=== PATIENT | female | born 1995 | race Hispanic/Latino ===

== ENCOUNTER 2019-12-29 06:49 | Outpatient (CLI) | payer OTHER ==
--- NOTE | 2019-12-29 08:13 | ULT ---
ULTRASOUND OBSTETRICAL COMPLETE: DATE: 12/29/2019 HISTORY: 24-year-old female ICD-10: "Z 34.82 encounter for supervision of other normal , second trime ster" "Complete anatomy, size and dates, cervical length" FINDINGS: number: neri lie: Transverse. Head to maternal right. Maternal cervix: 4.5 cm. Closed. Placenta: Anterior. No previa. Amniotic fluid volume: MARLON = 15 cm heart rate: 136 bpm The following anatomy is visualized, with no evidence of anomalies: Head, cerebellum, lateral ventricles, four-chamber heart, stomach, kidneys, cord insertion, bladder, cervical spine, thoracic spine, lumbar spine, sacrum, nose and lips, upper extremities, lower extremities, and three-vessel cord. biometry: Biparietal diameter (BPD): 6.3 cm 25 w 3 d Head circumference (HC): 23.9 cm 26 w 1 d Abdominal circumference (AC): 21.7 cm 26 w 1 d Femur length (FL): 4.7 cm 25 w 5 d Average ultrasound age (AUA): 25 w 6 d Estimated date of delivery (CARLEEN): 04/06/2020 Estimated weight (EFW): 870 g +/- 127 g IMPRESSION: 1) Live 2nd trimester intrauterine gestation. 2) Estimated gestational age of 25 weeks, 6 days 3) transverse lie. 4) no anatomic abnormality identified.
== END 2019-12-29 06:50 | disposition home or self-care (01) ==
LOC: BICULT 06:49
PROVIDERS: ATTEND Family Medicine
DX: Z34.82 Encounter for supervision of other normal pregnancy, second trimester (principal); Z3A.25 25 weeks gestation of pregnancy
CPT/HCPCS: 76805

== ENCOUNTER 2020-06-11 21:33 | Observation (INO) | payer MEDICAID, SELFPAY ==
[2020-06-11] MEDS ORDERED: Lorazepam 1 MG TAB ONE (22:25)
[2020-06-11 22:27] LABS: Bilirubin Negative (Negative); Blood, Urine Negative (Negative); Clarity Clear (Clear); Glucose, Urine (Dipstick) Normal (Negative); Ketone, Urine Negative (Negative); Leukocyte Negative Leu/uL (Negative); Nitrite Negative (Negative); Protein, Urine (Dipstick) Negative (Neg-Trace); Specific Gravity, Urine 1.002 (1.002-1.036); Urobilinogen Normal mg/dL (Less than 2); pH, Urine 6.5 (5.0-9.0)
[2020-06-11 22:47] LABS: #Basophils 0.1 thou/uL (0.0-0.2); #Eosinphils 0.1 thou/uL (0.0-0.7); #Monocytes 0.5 thou/uL (0.11-0.59); #Neutrophils 3.3 thou/uL (1.40-6.50); %Basophils 0.8 % (0.0-1.0); %Lymphocytes 42.8 % (21.0-51.0); %Neutrophils 47.3 % (42.0-75.0); Hemoglobin 14.5 g/dL (12.0-16.0); Mean Corpuscular Hemoglobin 28.3 pg (27.0-31.0); Mean Corpuscular Volume 80.7 fL (78.0-98.0); Mean Platelet Volume 11.2 fL (7.4-10.4); Platelet Count 209 thou/uL (130-400); RBC Distribution Width 17.3 % (11.5-14.5); Red Blood Cell (RBC) Count 5.14 mill/uL (4.20-5.40)
[2020-06-11 23:09] LABS: ALT (SGPT) 13 U/L (8-55); AST (SGOT) 16 U/L (5-34); Albumin 4.4 g/dL (3.5-5.0); Alkaline Phosphatase 93 U/L (40-110); Anion Gap 14 mmol/L (10-20); BUN (Urea Nitrogen) 6 mg/dL (7.0-18.7); Bilirubin, Total 0.3 mg/dL (0.2-1.2); CK (CPK) 94 U/L (29-168); Calc. Creatinine Clearance 0 mL/min (70-130); Calcium 8.9 mg/dL (7.8-10.44); Carbon Dioxide 21 mmol/L (22-29); Chloride 99 mmol/L (98-107); Estimated GFR-MDRD Greater than 90; Globulin 2.8 g/dL (2.4-3.5); Glucose 157 mg/dL (70-105); Magnesium 1.7 mg/dL (1.6-2.6); Protein, Total 7.2 g/dL (6.0-8.3); Sodium 131 mmol/L (136-145)
[2020-06-11 23:12] LABS: Potassium 2.5 mmol/L (3.5-5.1)
[2020-06-11] MEDS ORDERED: Potassium Chloride 20 MEQ TAB ONE (23:25)
[2020-06-11] MEDS ORDERED: Magnesium 2 GM/50 ML BAG (IN WATER) ONE (23:43)
[2020-06-11] MEDS ORDERED: Potassium Chloride 40 MEQ in Sodium Chloride 0.9% 250 ML 250 ML IVPB SCH (23:45)
[2020-06-12] MEDS ORDERED: Sodium Chloride 0.9% 1,000 ML IV SCH (02:45)
--- NOTE | 2020-06-12 03:08 | HP ---
REASON FOR ADMISSION: Anxiety and palpitation. HISTORY OF PRESENT ILLNESS: This is a 25-year-old female patient, who is presenting with tachycardia and anxiety. She recently delivered and has been on an extreme diet using weight loss supplements and not eating much over the past couple months. She did lose approximately 30 pounds. Did have a panic attack yesterday, came to the ER. Her blood work did reveal low potassium and low magnesium level. Currently, she is still in the ER and appears to be doing better, appears to be comfortable. When I went to see her, she was asleep. She is Georgian-speaking only, but her is at the bedside providing me with most of the information. PAST MEDICAL HISTORY: The patient does not have any past medical history. SOCIAL HISTORY: She does not smoke. Does not drink alcohol. FAMILY HISTORY: Negative for premature coronary artery disease. REVIEW OF SYSTEMS: All systems reviewed, except the above-mentioned weight loss, found to be negative. PHYSICAL EXAMINATION: GENERAL: She is awake, alert, oriented, does not appear in distress. VITAL SIGNS: Her blood pressure is 117/72, pulse of 104, temperature is 98.3, and saturating 98% on room air. HEENT: Head is nontraumatic and normocephalic. Pupils equal and reactive. Extraocular movements are intact. Nonicteric sclerae. Well injected conjunctivae. Oral mucosa normal. Nasal mucosa normal. NECK: Supple. No adenopathy. No murmur. Thyroid not palpable. Trachea is midline. No supraclavicular adenopathy. CARDIAC: S1, S2 regular. No murmur. No gallops. No friction rubs. No displacement of PMI. LUNGS: Clear to auscultation bilaterally. No wheezes. No rhonchi. No crackles. ABDOMEN: Bowel sounds are positive. Nontender abdomen. No visceromegaly. EXTREMITIES: No lower extremity edema. No cyanosis. NEUROLOGIC: Cranial nerves 2 through 12 within normal limits. Normal motor function. Normal sensory reflexes. LABORATORY DATA: Blood work shows WBC of 7, hemoglobin of 14.5, platelets of 209. Sodium 131, potassium 2.5, bicarb of 21, BUN 6, creatinine 0.71. Troponin 0.021. EKG shows sinus tachycardia, possible left atrial enlargement. Incomplete right bundle-branch block and nonspecific T-wave abnormality per my read. ASSESSMENT AND PLAN: This is a 25-year-old female patient, who is presenting with an anxiety attack, found to have hypokalemia and hypomagnesemia, also tachycardia, most likely due to poor diet and rapid weight loss over the past couple months after her . Currently, she is doing much better, receiving IV potassium and she did already receive IV magnesium. The patient will be admitted to telemetry and we will recheck her electrolytes in the morning and based on the results, we will proceed with further replacement if needed. For DVT prophylaxis, will be on SCDs. Job ID: [id number]
[2020-06-12 06:34] LABS: Anion Gap 11 mmol/L (10-20); BUN (Urea Nitrogen) 7 mg/dL (7.0-18.7); Calc. Creatinine Clearance 0 mL/min (70-130); Calcium 8.3 mg/dL (7.8-10.44); Carbon Dioxide 20 mmol/L (22-29); Chloride 115 mmol/L (98-107); Estimated GFR-MDRD Greater than 90; Glucose 112 mg/dL (70-105); Magnesium 2.5 mg/dL (1.6-2.6); Potassium 4.5 mmol/L (3.5-5.1); Sodium 141 mmol/L (136-145)
[2020-06-12 09:34] VITALS: BMI 23.8
[2020-06-12 13:00] LABS: SARS-CoV-2 MS2 Positive; SARS-CoV-2 N Gene Negative; SARS-CoV-2 S Gene Negative; SARS-CoV-2 by NAA Not Detected (NotDetected); SARS-CoV-2 orf1ab Negative
--- NOTE | 2020-06-12 13:15 | PDOC.HOSPP ---
- Subjective Encounter Date: 06/12/20 - Objective Vital Signs & Weight: Vital Signs (12 hours) Temp Pulse Resp Pulse Ox 06/12/20 11:40 98.0 F 82 16 98 06/12/20 08:10 99.3 F 81 16 98 Weight Weight 130 lb 0.105 oz Result Diagrams: 06/11/20 22:36 06/12/20 05:54 Hospitalist ROS - Medication Medications: Active Medications Generic Name Dose Route Start Last Admin Trade Name Freq PRN Reason Stop Dose Admin Sodium Chloride 1,000 mls @ 75 mls/hr 06/12/20 02:45 06/12/20 03:29 Normal Saline 0.9% IV 1,000 mls .[id number] GEOFF Administration Hosp A/P - Plan pt will be d/cd
[2020-06-12 13:58] VITALS: BP 120/68; TEMP 97.6
--- NOTE | 2020-06-12 14:26 | PDOC.DS.DS ---
Provider - Provider Date of Admission: 06/11/20 23:59 Admitting Provider: Ayse Palma MD Primary Care Physician: NO PCP PROVIDER Course - Hospital Course Hospital Course: 25-year-old female presented with tachycardia and electrolyte abnormalities. She is undergoing weight loss and intentionally lost 30 pounds. All of a sudden, she had a panic attack yesterday and brought into ER for the further evaluation and noted to have a severe potassium and magnesium deficiency along with mild metabolic acidosis. Her latest potassium 4.5 and magnesium 2.5 prior to discharge. Her TSH is 1.65. Encouraged her to to have a regular diet and follow with the PCP. Discharge time took over 30 minutes. Resuscitation Status: 06/12/20 02:35 Resuscitation Status Routine Resuscitation Status: FULL: Full Resuscitation - Labs Lab Results: 06/11/20 22:36 06/12/20 05:54 Abnormal Lab Results - Last 48 hrs 06/11/20 22:36: Sodium 131 L, Potassium 2.5 L*, Carbon Dioxide 21 L, BUN 6 L 06/11/20 22:36: RDW 17.3 H, MPV 11.2 H 06/12/20 05:54: Chloride 115 H, Carbon Dioxide 20 L - Physical Exam Vitals: Vital Signs (12 hours) Temp Pulse Resp BP Pulse Ox 06/12/20 13:27 97.6 F 98 18 120/68 100 06/12/20 11:40 98.0 F 82 16 98 06/12/20 08:10 99.3 F 81 16 98 Weight Weight 135 lb 5.821 oz Physical Exam: The patient was seen and examined on the day of discharge. Patient looked well. She denies any complaints today. She just moved to the telemetry floor, From the ER. No palpitations. Labs reviewed and discussed with the patient and the spouse. They do have other kids and they are quite anxious to leave soon. Plan - Discharge Medications Home Medications: Medication Instructions Recorded Confirmed Type No Known 06/12/20 06/12/20 History Allergies: No Known Allergies Allergy (Verified 06/12/20 09:31) - Discharge Instructions Discharge Instructions:: Follow with PCP in 1 week. If you experience any palpitations shortness of breath or chest pain please come to the ER or call your primary doctor thank you Activity:: Activity as Tolerated Nourishment:: Regular Diet - Follow up Plan Referrals: PROVIDER,NO PCP [Primary Care Provider] - Disposition: HOME Quality - Care Measures CORE MEASURES:: N/A
[2020-06-13] MEDS ORDERED: FLU VACC QS2020-21(6MOS UP)/PF 60 MCG/0.5 ML SYRINGE IM ONE (14:30)
--- NOTE | 2020-06-15 11:55 | EKG ---
Test Reason : TACHYCARDIA Blood Pressure : / mmHG Vent. Rate : 111 BPM Atrial Rate : 111 BPM P-R Int : 130 ms QRS Dur : 098 ms QT Int : 358 ms P-R-T Axes : 039 046 048 degrees QTc Int : 486 ms Sinus tachycardia Possible Left atrial enlargement Incomplete right bundle branch block T wave abnormality, consider anterior ischemia Abnormal ECG Confirmed by GIAN WADE M.D. ([id number]), editor house organ TESSIE HALLMAN ([id number]) on 06/15/2020 11:54:34 AM Referred By: Confirmed By:GIAN WADE M.D.
== END 2020-06-12 14:40 | disposition home or self-care (01) ==
LOC: ERS 21:33 → ERHOLD 23:59 → 2NO 06-12 13:49
PROVIDERS: ADMIT Internal Medicine; ATTEND Internal Medicine
DX: F41.0 Panic disorder [episodic paroxysmal anxiety] (principal); E87.6 Hypokalemia; E83.42 Hypomagnesemia; E87.2 Acidosis; R00.0 Tachycardia, unspecified; I45.10 Unspecified right bundle-branch block; F55.8 Abuse of other non-psychoactive substances; Z20.828 Contact with and (suspected) exposure to other viral communicable diseases
CPT/HCPCS: 36415; 80048; 80053; 81003; 82550; 83735; 84443; 84484; 85025; 87635; 93005; 96365; 96375; G0378; J3475; J3480; J7050; U0003